=== PATIENT | female | born 1960 | race Caucasian/White ===

== ENCOUNTER 2018-12-26 12:39 | Emergency (ER) | payer OTHER ==
[~2018-12-26] VITALS: Ht 172.7 cm; Wt 113.0 kg
[2018-12-26 13:07] LABS: ABSOLUTE LYMPHOCYTES 1.3 thou/uL (0.8-5.3); ABSOLUTE MONOCYTES 0.5 thou/uL (0.0-1.2); ABSOLUTE NEUTROPHILS 4.7 thou/uL (1.6-8.1); BASOPHILS 0.4 %; EOSINOPHILS 0.7 %; HEMATOCRIT 45.1 % (37.0-47.0); HEMOGLOBIN 15.3 gm/dL (12.0-15.0); LYMPHOCYTES 20.1 %; MCH 29.6 pg (26.0-34.0); MCV 86.9 fL (80.0-100.0); MONOCYTES 7.8 %; MPV 8.8 fl. (7.2-11.1); NUCLEATED RBCS 0 /100WBC; PLATELET COUNT* 286 thou/uL (150-400); RBC 5.18 mil/uL (4.20-5.00); WBC 6.6 thou/uL (4.0-11.0)
[2018-12-26 13:32] LABS: ANION GAP 10 mmol/L (7-16); BUN 14 mg/dL (7-18); CALCIUM 9.6 mg/dL (8.5-10.1); CHLORIDE 102 mmol/L (98-107); CO2 29 mmol/L (21-32); CREATININE 0.8 mg/dL (0.6-1.3); GLUCOSE 101 mg/dL (70-99); POTASSIUM 3.7 mmol/L (3.5-5.1); SODIUM 141 mmol/L (136-145); TROPONIN-I LEVEL <0.06 ng/mL (<0.06)
[2018-12-26 13:35] LABS: ALBUMIN 3.7 g/dL (3.4-5.0); ALKALINE PHOSPHATASE 112 U/L (46-116); SGOT 22 U/L (15-37); SGPT 35 U/L (30-65); TOTAL PROTEIN 8.6 g/dL (6.4-8.2)
[2018-12-26] MEDS ORDERED: PREDNISONE 10 M10 M1 PO (15:24)
[2018-12-26] MEDS ORDERED: ACYCLOVIR 800800 MG PO (15:24)
[2018-12-26] MEDS ORDERED: AUGMENTIN 875-1 EACH PO (15:24)
[2018-12-26] MEDS ORDERED: HYDROCHLOROTH12.5 M2 PO (15:30)
[2018-12-26 15:45] VITALS: BP 183/91
--- NOTE | 2018-12-26 16:03 | EKG ---
[place] [address] ELECTROCARDIOGRAM REPORT Name: MARGY LOCKWOOD Room: [facility]#: [id number] Admission: 12/26/18 Attend Phys: Discharge: 12/26/18 Date of : 62 Report #: [id number] THIS REPORT FOR: //name// [facility] ED Test Date: 2018-12-26 Test Time: 12:52:57 Pat Name: MARGY LOCKWOOD Department: Room: Gender: F Residential Field Manager: : [id number] Requested By: Austen Schwarz Order Number: [id number] MD: Kali Stearns Measurements Intervals [place] Rate: 98 P: 56 [place]: 188 QRS: -16 QRSD: 96 T: 17 QT: 351 QTc: 449 Interpretive Statements Sinus rhythm Abnormal R-wave progression, late transition Left ventricular hypertrophy No previous ECG available for comparison Electronically Signed On 12-26-2018 16:03:32 CDT by Kali Stearns [email or web address] <ELECTRONICALLY SIGNED> By: Kali Stearns MD, [facility] 12/26/18 1603 [id number] 51 Kali Stearns MD, FACC /EPI
== END 2018-12-26 15:46 | disposition home or self-care (01) ==
LOC: M.ERS 12:39
PROVIDERS: Emergency Medicine Emergency Medical Services
DX: G51.0 Bell's palsy (principal); I10 Essential (primary) hypertension; H66.92 Otitis media, unspecified, left ear